=== PATIENT | female | born 1995 | race Caucasian/White ===

== ENCOUNTER 2016-11-26 17:04 | Emergency (ER) | payer OTHER ==
[~2016-11-26] VITALS: Ht 162.6 cm; Wt 70.0 kg
[~2016-11-26 17:04] MED LIST: AMOX500T PO; BENZ100 PO; CIPR500T4 PO; VENTAER INH; ZITH250T PO; ZOFR4TAB3 PO
[2016-11-26 17:06] VITALS: BP 137/85; PULSE 85; RESP 14; TEMP 97.7; O2SAT 96
--- NOTE | 2016-11-26 20:56 | PD ---
HPI Chief Complaint: ENT Complaint Time Seen by Provider: 20:45 Travel History International Travel<30 days: No Contact w/Intl Traveler<30days: No Traveled to known affect area: No History of Present Illness HPI 21-year-old female presents for evaluation of cough and sore throat. Symptoms started 2 weeks ago. The cough is primarily dry nonproductive but occasionally productive with sputum. She reports that her primary care physician prescribed her a cough suppressant but symptoms persisted which prompted evaluation. The cough is worse tonight. Denies recent travel, shortness of breath, fevers or chills. No sick contacts. No significant past medical history. No other complaints. 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 ) Respiratory: Yes (BRONCHITIS) Immunizations Current: No ?: Not : 0 Para: 0 Miscarriage: 0 : 0 Social History Alcohol Use: Yes (OCC) Tobacco Use: No Substance Use: No Allergies-Medications (Allergen,Severity, Reaction): Coded Allergies: Bactrim (Verified Allergy, Severe, Hives, 08/02/16) Reported Meds & Prescriptions Reported Meds & Active Scripts Active Magic Mouthwash Adult Liq (Multi-Ingredient Mouthwash/Gargle) 120 Ml Susp 5 Ml SWISH-SPIT ACHS Each 5 mL contains: Nystatin 200,000 units, Diphenhydramine 4.25 mg, Viscous Lidocaine 10 mg, Boggs syrup 0.8 mL Codeine/Guaifenesin 100-10 mg/5Ml (Guaifenesin-Codeine) 1 Tami Tami 5 Ml PO Q4HR PRN Review of Systems Except as stated in HPI: all other systems reviewed are Neg Physical Exam Narrative GENERAL: Well-developed well-nourished female in no acute distress SKIN: Warm and dry. HEAD: Atraumatic. Normocephalic. EYES: Pupils equal and round. No scleral icterus. No injection or drainage. ENT: No nasal bleeding or discharge. Mucous membranes pink and moist. There is mild oropharyngeal erythema without exudate. Uvula midline with no mass effect. NECK: Trachea midline. No JVD. No Lymphadenopathy. CARDIOVASCULAR: Regular rate and rhythm. No murmur appreciated. RESPIRATORY: No accessory muscle use. Clear to auscultation. Breath sounds equal bilaterally. No crackles no wheezing or rhonchi Data Data Last Documented VS Vital Signs Date Time Temp Pulse Resp B/P Pulse Ox O2 Delivery O2 Flow Rate FiO2 11/26/16 17:06 97.7 85 14 137/85 96 Room Air Orders Chest, Single Ap (11/26/16 ) Group A Rapid Strep Screen (11/26/16 20:53) Strep Culture (Group A) (11/26/16 21:05) MDM Medical Decision Making Medical Screen Exam Complete: Yes Emergency Medical Condition: Yes Medical Record Reviewed: Yes Differential Diagnosis Bronchitis, pneumonia, reactive airway disease, influenza, pertussis, pharyngitis, tonsillitis, peritonsillar abscess Narrative Course 21-year-old female with 2 weeks of sore throat and cough. Rapid strep screen and chest x-ray ordered and were unremarkable. Physical examination is reassuring. She appears to have a viral bronchitis and pharyngitis. She'll be discharged with medication for supportive care. Diagnosis Primary Impression: Bronchitis Additional Impression: Pharyngitis Qualified Code: J02.9 - Pharyngitis, unspecified etiology Additional Instructions: Medication as needed. Follow-up with primary care physician as needed. Stay well hydrated. Return for any emergent medical conditions. Med/Other Pt SpecificInfo: Prescription(s) given Scripts Eijvuues-Qoobcazhzxjupsz-Nyfgcfkiv Liq (Magic Mouthwash Adult Liq)120 Ml Susp5 Ml SWISH-SPIT ACHS #120 ML Ref 0 Each 5 mL contains: Nystatin 200,000 units, Diphenhydramine 4.25 mg, Viscous Lidocaine 10 mg, Boggs syrup 0.8 mL Prov:Padilla Rosas MD 11/26/16 Guaifenesin-Codeine (Codeine/Guaifenesin 100-10 mg/5Ml)1 Tami Sol5 Ml PO Q4HR PRN (COUGH) #240 ML Prov:Padilla Rosas MD 11/26/16 Disposition: 01 DISCHARGE HOME Condition: Stable Horacio Marmolejo Nov 26, 2016 20:56
--- NOTE | 2016-11-26 21:19 | RADRPT ---
EXAM DATE/TIME: 11/26/2016 21:07 [facility] COMPARISON: No previous studies available for comparison. INDICATIONS : Cough. MEDICAL HISTORY : None. SURGICAL HISTORY : None. ENCOUNTER: Initial ACUITY: 4 - 6 days PAIN SCORE: 0/10 LOCATION: chest FINDINGS: A single view of the chest demonstrates the lungs to be symmetrically aerated without evidence of mas s, infiltrate or effusion. The cardiomediastinal contours are unremarkable. Osseous structures are intact. CONCLUSION: No acute disease. Yves Ferreira MD on November 26, 2016 at 21:17 Board Certified Radiologist. This report was verified electronically.
[2016-11-26] MEDS ORDERED: MAGICADU2 SWISH-SPIT (21:48)
[2016-11-26] MEDS ORDERED: GUAI1SOL3 PO (21:48)
== END 2016-11-26 22:10 | disposition home or self-care (01) ==
LOC: NEPB 17:04
DX: J40 Bronchitis, not specified as acute or chronic (principal); J02.9 Acute pharyngitis, unspecified; B97.89 Other viral agents as the cause of diseases classified elsewhere; Z87.09 Personal history of other diseases of the respiratory system
CPT/HCPCS: 71010; 87081; 87880; 99283

== ENCOUNTER 2017-10-15 10:54 | Emergency (ER) | payer SELFPAY ==
[~2017-10-15 10:54] MED LIST changes: -AMOX500T PO; -BENZ100 PO; -CIPR500T4 PO; +GUAI1SOL3 PO; +MAGICADU2 SWISH-SPIT; -VENTAER INH; -ZITH250T PO; -ZOFR4TAB3 PO
[2017-10-15 10:56] VITALS: BP 121/80; PULSE 73; RESP 12; TEMP 98; O2SAT 98
[2017-10-15] MEDS ORDERED: AMOX500C PO (11:43)
[2017-10-15] MEDS ORDERED: MEDR4PAK PO (11:43)
--- NOTE | 2017-10-15 11:44 | PD ---
HPI Chief Complaint: Cold / Flu Symptoms Time Seen by Provider: 11:28 Travel History International Travel<30 days: No Contact w/Intl Traveler<30days: No Traveled to known affect area: No History of Present Illness HPI The patient is a 22-year-old female who presents emergency department for URI symptoms with bilateral ear pain. The patient is a 2 day history of significant congestion and facial pain over the maxillary sinus area. She also complains of copious nasal congestion and drainage as well as postnasal drip and a dry nonproductive cough. She also complains of bilateral ear pain with a history of previous ear infections. She denies any fever, chills, or sweats. The patient was advised by her mother come to the emergency department. She denies any fever, chills, or sweats. Symptoms are moderate without any alleviating or known exacerbating factors. 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 ) Respiratory: Yes (BRONCHITIS) Immunizations Current: No Tetanus Vaccination: > 5 Years Influenza Vaccination: No ?: Not LMP: 10/01/17 : 0 Para: 0 Miscarriage: 0 : 0 Past Surgical History Surgical History: No Previous Surgery Social History Alcohol Use: Yes (OCC) Tobacco Use: No Substance Use: No Allergies-Medications (Allergen,Severity, Reaction): Coded Allergies: sulfamethoxazole (Verified Allergy, Severe, Hives, 10/15/17) trimethoprim (Verified Allergy, Severe, Hives, 10/15/17) Reported Meds & Prescriptions Reported Meds & Active Scripts Active No Active Prescriptions or Reported Medications Review of Systems Except as stated in HPI: all other systems reviewed are Neg General / Constitutional: No: Fever, Chills HENT: Positive: Headaches, Sore Throat, Rhinorrhea, Congestion, Earache Respiratory: Positive: Cough, No: Shortness of Breath Gastrointestinal: No: Nausea, Vomiting, Diarrhea, Abdominal Pain Musculoskeletal: No: Myalgias, Arthralgias Physical Exam Narrative GENERAL: Awake, alert, pleasant 22-year-old female who appears her stated age and is in no acute respiratory distress. SKIN: Focused skin assessment warm/dry. HEAD: Atraumatic. Normocephalic. EYES: Pupils equal and round. No scleral icterus. No injection or drainage. ENT: Tenderness of the maxillary sinuses bilateral. Turbinates bilaterally are enlarged and erythematous. Oropharynx reveals cobblestoning without erythema or exudate. EACs are clear bilaterally. TMs are dull with air-fluid level but no erythema or bulging. NECK: Trachea midline. No JVD. CARDIOVASCULAR: Regular rate and rhythm. No murmur appreciated. RESPIRATORY: No accessory muscle use. Clear to auscultation. Breath sounds equal bilaterally. MUSCULOSKELETAL: No obvious deformities. No clubbing. No cyanosis. No edema. NEUROLOGICAL: Awake and alert. No obvious cranial nerve deficits. Motor grossly within normal limits. Normal speech. PSYCHIATRIC: Appropriate mood and affect; insight and judgment normal. Data Data Last Documented VS Vital Signs Date Time Temp Pulse Resp B/P (MAP) Pulse Ox O2 Delivery O2 Flow Rate FiO2 10/15/17 11:26 16 99 Room Air 10/15/17 10:56 98.0 73 121/80 (94) [facility] Medical Decision Making Medical Screen Exam Complete: Yes Emergency Medical Condition: Yes Medical Record Reviewed: Yes Differential Diagnosis Differential diagnosis includes sinusitis, URI, otitis media, otitis externa, eustachian tube dysfunction, viral syndrome, influenza. Narrative Course The patient's history and physical are consistent with a URI with secondary sinusitis and eustachian tube dysfunction. The patient will be placed on amoxicillin and a Medrol Dosepak. She is advised to alternate Tylenol and or Motrin as needed for pain and a follow-up with her primary physician. Return if symptoms worsen or progress. Diagnosis Primary Impression: Sinusitis Qualified Codes: J01.00 - Acute maxillary sinusitis, unspecified Additional Impression: Eustachian tube dysfunction Qualified Codes: H69.83 - Other specified disorders of eustachian tube, bilateral Patient Instructions: General Instructions Additional Instructions: Medications as directed. Follow-up with her primary physician. Return if symptoms worsen or progress. Med/Other Pt SpecificInfo: Prescription(s) given Scripts Amoxicillin (Amoxicillin) 500 Mg Cap 500 MG PO TID for Infection for 10 Days, CAP 0 Refills Prov: Alex Fabian MD 10/15/17 Methylprednisolone Dosepak (Medrol Dosepak) 4 Mg Dspk 4 MG PO DIRECTED, #1 DSPK 0 Refills Per Pharmacist direction Prov: Alex Fabian MD 10/15/17 Disposition: 01 DISCHARGE HOME Condition: Stable Alex Fabian MD Oct 15, 2017 11:43
[2017-10-15 11:48] VITALS: BP 109/78; TEMP 97.8
== END 2017-10-15 11:55 | disposition home or self-care (01) ==
LOC: NEPD 10:54
DX: J32.9 Chronic sinusitis, unspecified (principal); H69.83 Other specified disorders of Eustachian tube, bilateral; R51 Headache; Z88.2 Allergy status to sulfonamides; Z88.8 Allergy status to other drugs, medicaments and biological substances
CPT/HCPCS: 99284

== ENCOUNTER 2017-11-24 23:51 | Emergency (ER) | payer SELFPAY ==
[~2017-11-24] VITALS: Ht 162.6 cm; Wt 70.0 kg
[~2017-11-24 23:51] MED LIST changes: +AMOX500C PO; -GUAI1SOL3 PO; -MAGICADU2 SWISH-SPIT; +MEDR4PAK PO
[2017-11-24 23:54] VITALS: BP 120/72; PULSE 91; RESP 16; TEMP 97.8; O2SAT 98
[2017-11-25 00:43] LABS: AUTOMATED NEUTROPHIL # 6.2 TH/MM3 (1.8-7.7); BASOPHIL % 0.4 % (0.0-2.0); EOSINOPHIL # 0.1 TH/MM3 (0-0.4); EOSINOPHIL % 0.8 % (0.0-4.0); HEMATOCRIT 41.8 % (35.0-46.0); HEMOGLOBIN 14.9 GM/DL (11.6-15.3); LYMPH % 27.9 % (9.0-44.0); LYMPHOCYTE # 2.7 TH/MM3 (1.0-4.8); MEAN CELL VOLUME 85.9 FL (80.0-100.0); MEAN CORPUSCULAR HEMOGLOBIN 30.6 PG (27.0-34.0); MEAN CORPUSCULAR HGB CONC 35.6 % (32.0-36.0); MEAN PLATELET VOLUME 8.4 FL (7.0-11.0); MONO % 7.6 % (0.0-8.0); MONOCYTE # 0.7 TH/MM3 (0-0.9); NEUT % 63.3 % (16.0-70.0); PLATELET COUNT 196 TH/MM3 (150-450); RED BLOOD COUNT 4.86 MIL/MM3 (4.00-5.30); RED CELL DISTRIBUTION WIDTH 12.5 % (11.6-17.2); WHITE BLOOD COUNT 9.8 TH/MM3 (4.0-11.0)
[2017-11-25] MEDS ORDERED: SODIUM CHLOR 0.9% 1000 ML INJ 1,000 ML IV ONE (00:45)
[2017-11-25] MEDS ORDERED: ONDANSETRON HCL 4 MG/2 ML VIAL IV PUSH ONE (00:45)
[2017-11-25 00:46] LABS: BACTERIA, URINE RARE /hpf; BILIRUBIN, URINE NEG (NEG); BLOOD, URINE SMALL (NEG); GLUCOSE,URINE NEG (NEG); KETONE, URINE NEG (NEG); MUCUS URINE FEW /lpf (OCC); NITRITE,URINE NEG (NEG); PH, URINE 5.5 (5.0-8.5); SQUAMOUS EPITHELIAL CELL URINE 3 /hpf (0-5); URINE COLOR YELLOW (YELLW/STRAW); URINE LEUKOCYTE ESTERASE LARGE (NEG)
[2017-11-25 00:58] LABS: ALBUMIN 4.1 GM/DL (3.4-5.0); AST (GOT) 17 U/L (15-37); BICARBONATE 25.6 MEQ/L (21.0-32.0); BLOOD UREA NITROGEN 24 MG/DL (7-18); CALCIUM 8.7 MG/DL (8.5-10.1); CHLORIDE 107 MEQ/L (98-107); CREATININE 0.69 MG/DL (0.50-1.00); GLOMERULAR FILTRATION RATE 106 ML/MIN (>89); GLUCOSE,RANDOM 103 MG/DL (74-106); LIPASE 121 U/L (73-393); SODIUM (NA) 139 MEQ/L (136-145)
[2017-11-25 01:01] LABS: ALKALINE PHOSPHATASE 73 U/L (45-117); ALT (GPT) 30 U/L (10-53); TOTAL BILIRUBIN ADULT 0.2 MG/DL (0.2-1.0); TOTAL PROTEIN 7.7 GM/DL (6.4-8.2)
[2017-11-25] MEDS ORDERED: ZOFR4TAB PO (01:17)
--- NOTE | 2017-11-25 01:17 | PD ---
HPI . Abdominal pain Chief Complaint: Abdominal Pain Time Seen by Provider: 00:31 Travel History International Travel<30 days: No Contact w/Intl Traveler<30days: No Traveled to known affect area: No History of Present Illness HPI This patient presents with chief complaint of abdominal pain associated with nausea, vomiting and diarrhea. She and a friend ate dinner tonight and both started having GI symptoms about 2 hours later. They present here together. The fevers. No urinary tract symptoms. Presented modifying factor was supple. Symptoms are moderate. PFSH Past Medical History Medical History: Denies Significant Hx Diminished Hearing: Yes (BILATERAL HEARING AIDS) Respiratory: Yes (BRONCHITIS) Immunizations Current: No ?: Not LMP: 11/25/17 : 0 Para: 0 Miscarriage: 0 : 0 Past Surgical History Surgical History: No Previous Surgery Social History Alcohol Use: Yes (OCC) Tobacco Use: No Substance Use: No Allergies-Medications (Allergen,Severity, Reaction): Coded Allergies: sulfamethoxazole (Verified Allergy, Severe, Hives, 11/25/17) trimethoprim (Verified Allergy, Severe, Hives, 11/25/17) Reported Meds & Prescriptions Reported Meds & Active Scripts Active Amoxicillin 500 Mg Cap 500 Mg PO TID 10 Days Medrol Dosepak (Methylprednisolone) 4 Mg Dspk 4 Mg PO DIRECTED Per Pharmacist direction Review of Systems Except as stated in HPI: all other systems reviewed are Neg General / Constitutional: No: Fever, Chills Gastrointestinal: Positive: Nausea, Vomiting, Diarrhea, Abdominal Pain Genitourinary: No: Urgency, Frequency, Dysuria Physical Exam Narrative GENERAL: Patient was initially talking on her cell phone in no acute distress. SKIN: warm/dry. Normal color and turgor. HEAD: Normocephalic. Atraumatic. EYES: Pupils equal and round. No scleral icterus. No injection or drainage. ENT: No nasal bleeding or discharge. Mucous membranes pink and moist. NECK: Trachea midline. Full range of motion without pain.. CARDIOVASCULAR: Regular rate and rhythm. Heart sounds normal. RESPIRATORY: No accessory muscle use. Clear to auscultation. Breath sounds equal bilaterally. GASTROINTESTINAL: Abdomen soft. Nontender. Bowel sounds present. Nondistended. MUSCULOSKELETAL: No obvious deformities. NEUROLOGICAL: Awake and alert. No obvious cranial nerve deficits. Motor grossly within normal limits. Normal speech. PSYCHIATRIC: Appropriate mood and affect; insight and judgment normal. Data Data Last Documented VS Vital Signs Date Time Temp Pulse Resp B/P (MAP) Pulse Ox O2 Delivery O2 Flow Rate FiO2 11/25/17 00:42 Nasal Cannula 2.00 11/24/17 23:54 97.8 91 16 120/72 (88) 98 Orders Orders Complete Blood Count With Diff (11/25/17 00:19) Comprehensive Metabolic Panel (11/25/17 00:19) Urinalysis - C+S If Indicated (11/25/17 00:19) Ed Urine Pregnancytest Poc (11/25/17 00:19) Iv Access Insert/Monitor (11/25/17 00:19) Oxygen Administration (11/25/17 00:19) Oximetry (11/25/17 00:19) Lipase (11/25/17 00:19) Sodium Chlor 0.9% 1000 Ml Inj (Ns 1000 M (11/25/17 00:45) Ondansetron Inj (Zofran Inj) (11/25/17 00:45) Labs Laboratory Tests Test 11/25/17 00:20 White Blood Count 9.8 TH/MM3 Red Blood Count 4.86 MIL/MM3 Hemoglobin 14.9 GM/DL Hematocrit 41.8 % Mean Corpuscular Volume 85.9 FL Mean Corpuscular Hemoglobin 30.6 PG Mean Corpuscular Hemoglobin Concent 35.6 % Red Cell Distribution Width 12.5 % Platelet Count 196 TH/MM3 Mean Platelet Volume 8.4 FL Neutrophils (%) (Auto) 63.3 % Lymphocytes (%) (Auto) 27.9 % Monocytes (%) (Auto) 7.6 % Eosinophils (%) (Auto) 0.8 % Basophils (%) (Auto) 0.4 % Neutrophils # (Auto) 6.2 TH/MM3 Lymphocytes # (Auto) 2.7 TH/MM3 Monocytes # (Auto) 0.7 TH/MM3 Eosinophils # (Auto) 0.1 TH/MM3 Basophils # (Auto) 0.0 TH/MM3 CBC Comment DIFF FINAL Differential Comment Urine Color YELLOW Urine Turbidity CLEAR Urine pH 5.5 Urine Specific Luana 1.022 Urine Protein NEG mg/dL Urine Glucose (UA) NEG mg/dL Urine Ketones NEG mg/dL Urine Occult Blood SMALL Urine Nitrite NEG Urine Bilirubin NEG Urine Urobilinogen LESS THAN 2.0 MG/DL Urine Leukocyte Esterase LARGE Urine RBC 3 /hpf Urine WBC 4 /hpf Urine Squamous Epithelial Cells 3 /hpf Urine Bacteria RARE /hpf Urine Mucus FEW /lpf Microscopic Urinalysis Comment CULT NOT INDICATED Blood Urea Nitrogen 24 MG/DL Creatinine 0.69 MG/DL Random Glucose 103 MG/DL Total Protein 7.7 GM/DL Albumin 4.1 GM/DL Calcium Level 8.7 MG/DL Alkaline Phosphatase 73 U/L Aspartate Amino Transf (AST/SGOT) 17 U/L Alanine Aminotransferase (ALT/SGPT) 30 U/L Total Bilirubin 0.2 MG/DL Sodium Level 139 MEQ/L Potassium Level 3.8 MEQ/L Chloride Level 107 MEQ/L Carbon Dioxide Level 25.6 MEQ/L Anion Gap 6 MEQ/L Estimat Glomerular Filtration Rate 106 ML/MIN Lipase 121 U/L MDM Medical Decision Making Medical Screen Exam Complete: Yes Emergency Medical Condition: Yes Differential Diagnosis Differential diagnosis includes but is not limited to viral gastritis, food poisoning, pancreatitis, pneumonia, hepatitis, acute coronary syndrome, Narrative Course Patient presents along with a friend with the acute onset of nausea, vomiting and abdominal pain after eating tonight. She has been treated with IV fluids and IV Zofran. CBC & BMP Diagram 11/25/17 00:20 Total Protein 7.7, Albumin 4.1, Calcium Level 8.7, Alkaline Phosphatase 73, Aspartate Amino Transf (AST/SGOT) 17, Alanine Aminotransferase (ALT/SGPT) 30, Total Bilirubin 0.2 HCG is negative. Her urinalysis was contaminated but does not look infected. Diagnosis Primary Impression: Vomiting Qualified Codes: R11.2 - Nausea with vomiting, unspecified Patient Instructions: Acute Nausea and Vomiting (DC), General Instructions Med/Other Pt SpecificInfo: Prescription(s) given Scripts Ondansetron (Zofran) 4 Mg Tab 4 MG PO Q6HR Y for NAUSEA OR VOMITING, #6 TAB 0 Refills Prov: Nitza Partida MD 11/25/17 Disposition: 01 DISCHARGE HOME Condition: Stable Nitza Partida MD Nov 25, 2017 01:17
[2017-11-25 02:04] VITALS: BP 130/76
== END 2017-11-25 02:10 | disposition home or self-care (01) ==
LOC: NEPC 23:51
DX: R11.2 Nausea with vomiting, unspecified (principal); R10.9 Unspecified abdominal pain; R19.7 Diarrhea, unspecified; Z88.2 Allergy status to sulfonamides; Z88.8 Allergy status to other drugs, medicaments and biological substances
CPT/HCPCS: 80053; 81001; 83690; 84703; 85025; 96361; 96374; 99284; J2405; J7030

== ENCOUNTER 2018-02-11 09:43 | Emergency (ER) | payer SELFPAY ==
[~2018-02-11] VITALS: Ht 162.6 cm; Wt 75.0 kg
[~2018-02-11 09:43] MED LIST changes: +ZOFR4TAB PO
[2018-02-11 09:45] VITALS: BP 120/60; PULSE 81; RESP 18; TEMP 98.2; O2SAT 98
[2018-02-11] MEDS ORDERED: HUMIBIDDM PO (10:20)
[2018-02-11] MEDS ORDERED: ALEV120T PO (10:20)
--- NOTE | 2018-02-11 10:21 | PD ---
HPI Chief Complaint: Cold / Flu Symptoms Time Seen by Provider: 09:58 Travel History International Travel<30 days: No Contact w/Intl Traveler<30days: No Traveled to known affect area: No History of Present Illness HPI 22-year-old woman with cough cold symptoms, congestion, fever, coughing up yellow and red phlegm yesterday, clear today, with myalgias. Fever up to 102. No sick contacts. Missed work yesterday. History Past Medical History Narrative Medical Ovarian cyst LMP: JANUARY 2018 : 0 Para: 0 Social History Alcohol Use: Yes (OCC) Tobacco Use: No Allergies-Medications (Allergen,Severity, Reaction): Coded Allergies: sulfamethoxazole (Verified Allergy, Severe, Hives, 11/25/17) trimethoprim (Verified Allergy, Severe, Hives, 11/25/17) Reported Meds & Prescriptions Reported Meds & Active Scripts Active Zofran (Ondansetron HCl) 4 Mg Tab 4 Mg PO Q6HR PRN Amoxicillin 500 Mg Cap 500 Mg PO TID 10 Days Medrol Dosepak (Methylprednisolone) 4 Mg Dspk 4 Mg PO DIRECTED Per Pharmacist direction Review of Systems Except as stated in HPI: all other systems reviewed are Neg Physical Exam Narrative GENERAL: Well-appearing 20-year-old woman, no acute distress. SKIN: Focused skin assessment warm/dry. HEENT: Frequent cough. Some congestion. A little bit of erythema in the back of the throat. No tonsillar enlargement or purulent drainage. No palatal petechiae. TMs are normal. No meningismus HEAD: Atraumatic. Normocephalic. CARDIOVASCULAR: Regular rate and rhythm. No murmur appreciated. RESPIRATORY: No accessory muscle use. Clear to auscultation. Breath sounds equal bilaterally. GASTROINTESTINAL: Abdomen soft, non-tender, nondistended. Hepatic and splenic margins not palpable. MUSCULOSKELETAL: No obvious deformities. No edema. NEUROLOGICAL: Awake and alert. No obvious cranial nerve deficits. Motor grossly within normal limits. Normal speech. PSYCHIATRIC: Appropriate mood and affect; insight and judgment normal. Data Data Last Documented VS Vital Signs Date Time Temp Pulse Resp B/P (MAP) Pulse Ox O2 Delivery O2 Flow Rate FiO2 02/11/18 09:45 98.2 81 18 120/60 (80) 98 MDM Medical Decision Making Medical Screen Exam Complete: Yes Emergency Medical Condition: Yes Differential Diagnosis Flu, URI, bronchitis, otitis, other Narrative Course Medical decision making para 20-year-old woman presents emerged R URI symptoms. Looks well. Recommend supportive treatment. Diagnosis Primary Impression: Influenza-like illness Patient Instructions: General Instructions Departure Forms: Tests/Procedures, Work Release Enter return to work date: Feb 11, 2018 Special Instructions: May return to work after no fever for 24 hours. Additional Instructions: You can return to work after you have had no fever for 24 hours. Drink plenty of fluids to stay well-hydrated. Follow-up with your primary doctor if you are not completely well in 7-10 days. Return to the emergency department for any worsening chest pain, trouble breathing, or any other new or worsening symptoms. Med/Other Pt SpecificInfo: Prescription(s) given Scripts Dextromethorphan-Guaifenesin (Mucinex DM) 30-600 Mg Tab 2 TAB PO BID Y for CHEST CONGESTION AND/OR COUGH, #28 TAB 0 Refills Prov: Padilla Rosas MD 02/11/18 Pseudoephedrine-Naproxen (Aleve-D Sinus & Headache) 120-220 Mg Tab 1 TAB PO BID, #14 TAB Prov: Padilla Rosas MD 02/11/18 Disposition: 01 DISCHARGE HOME Condition: Stable Padilla Rosas MD Feb 11, 2018 10:21
== END 2018-02-11 10:52 | disposition home or self-care (01) ==
LOC: NEPD 09:43
DX: J11.1 Influenza due to unidentified influenza virus with other respiratory manifestations (principal)
CPT/HCPCS: 99283

== ENCOUNTER 2018-03-04 17:19 | Emergency (ER) | payer SELFPAY ==
[~2018-03-04] VITALS: Ht 162.6 cm; Wt 68.0 kg
[~2018-03-04 17:19] MED LIST changes: +ALEV120T PO; +HUMIBIDDM PO
[2018-03-04 17:37] VITALS: BP 112/67; PULSE 84; RESP 15; TEMP 98.9; O2SAT 97
--- NOTE | 2018-03-04 18:01 | PD ---
HPI Chief Complaint: Cold / Flu Symptoms Time Seen by Provider: 17:48 Travel History International Travel<30 days: No Contact w/Intl Traveler<30days: No Traveled to known affect area: No History of Present Illness HPI This is a 22-year-old female who presents to the emergency department with 2 weeks of sore throat, constant, moderate severity, worse with swallowing associated with a productive cough with white sputum and fever up to 105 at home. She says that she has been sweating through her clothing and she has been having chills. The symptoms have been persistent. She was seen in the emergency department 2 weeks ago and at that time discharged with cough suppressant and decongestant. She says it is not helping and she is still sick. She also has been trying an inhaler that she has at home but that is not helping the cough and she completed a course of azithromycin which she had left over from another illness. She does not smoke. PFSH Past Medical History Diminished Hearing: Yes (BILATERAL HEARING AIDS) Respiratory: Yes (BRONCHITIS) Immunizations Current: No ?: Unknown : 0 Para: 0 Miscarriage: 0 : 0 Social History Alcohol Use: Yes (OCC) Tobacco Use: No Substance Use: No Allergies-Medications (Allergen,Severity, Reaction): Coded Allergies: sulfamethoxazole (Verified Allergy, Severe, Hives, 11/25/17) trimethoprim (Verified Allergy, Severe, Hives, 11/25/17) Reported Meds & Prescriptions Reported Meds & Active Scripts Active Mucinex DM (Dextromethorphan-Guaifenesin) 30-600 Mg Tab 2 Tab PO BID PRN Aleve-D Sinus & Headache (Pseudoephedrine-Naproxen) 120-220 Mg Tab 1 Tab PO BID Zofran (Ondansetron HCl) 4 Mg Tab 4 Mg PO Q6HR PRN Amoxicillin 500 Mg Cap 500 Mg PO TID 10 Days Medrol Dosepak (Methylprednisolone) 4 Mg Dspk 4 Mg PO DIRECTED Per Pharmacist direction Review of Systems Except as stated in HPI: all other systems reviewed are Neg Physical Exam Narrative GENERAL:Well appearing, no acute distress SKIN: Focused skin assessment warm and dry. HEAD: Atraumatic. Normocephalic. EYES: Pupils equal and round. No injection or drainage. ENT: Posterior pharyngeal erythema with no exudates. Some anterior cervical tender lymphadenopathy. NECK: Trachea midline. CARDIOVASCULAR: Regular rate and rhythm. No murmur appreciated. RESPIRATORY: Clear to auscultation. Breath sounds equal bilaterally. GASTROINTESTINAL: Abdomen soft, non-tender, nondistended. MUSCULOSKELETAL: No obvious deformities. NEUROLOGICAL: Awake and alert. No obvious cranial nerve deficits. Moving all extremities. PSYCHIATRIC: Appropriate mood and affect; insight and judgment normal. Data Data Last Documented VS Vital Signs Date Time Temp Pulse Resp B/P (MAP) Pulse Ox O2 Delivery O2 Flow Rate FiO2 03/04/18 17:50 18 99 Room Air 03/04/18 17:37 98.9 84 112/67 (82) Orders Orders Group A Rapid Strep Screen (03/04/18 17:57) Monoscreen (03/04/18 17:57) Strep Culture (Group A) (03/04/18 18:00) Labs Laboratory Tests Test 03/04/18 18:00 Monoscreen NEG MDM Medical Decision Making Medical Screen Exam Complete: Yes Emergency Medical Condition: Yes Interpretation(s) [place] screen is negative Strep is negative Differential Diagnosis Strep pharyngitis, mononucleosis, influenza, viral syndrome Narrative Course This is a 22-year-old female who presents to the emergency department with sore throat and cough as well as fever at home. She is well-appearing on exam with normal vital signs. Rapid strep and mono were negative. I do not think she requires any additional diagnostics. This appears to be a persistent viral syndrome. Patient will be discharged with symptomatic medications. Diagnosis Primary Impression: Viral syndrome Patient Instructions: General Instructions Additional Instructions: If you develop severe chest pain, shortness of breath, sweating, lightheadedness , dizziness or difficulty breathing return to the emergency department immediately. Followup with your primary care physician in 2-3 days if your symptoms are not resolved. Med/Other Pt SpecificInfo: No Change to Meds Scripts Benzonatate (Tessalon Perles) 100 Mg Cap 100 MG PO TID Y for COUGH, #20 CAP 0 Refills Prov: Ekaterina Salinas MD 03/04/18 Promethazine-Codeine Liq (Promethazine-Codeine Liq) 6.25-10 Mg/5 Ml Syrp 5-10 ML PO Q6H Y for COUGH AND/OR COLD SYMPTOMS, #100 ML 0 Refills Prov: Ekaterina Salinas MD 03/04/18 Disposition: 01 DISCHARGE HOME Condition: Stable Ekaterina Salinas MD March 04, 2018 18:01
[2018-03-04 18:35] LABS: MONOSCREEN NEG (NEG)
[2018-03-04] MEDS ORDERED: PROM6.256 PO (18:52)
[2018-03-04] MEDS ORDERED: BENZ100 PO (18:52)
== END 2018-03-04 19:44 | disposition home or self-care (01) ==
LOC: NEPD 17:19
DX: B34.9 Viral infection, unspecified (principal); Z88.2 Allergy status to sulfonamides; Z88.8 Allergy status to other drugs, medicaments and biological substances
CPT/HCPCS: 86308; 87081; 87880; 99283

== ENCOUNTER 2018-03-17 06:51 | Emergency (ER) | END 2018-03-17 09:59 | disposition home or self-care (01) | DX: G44.319 Acute post-traumatic headache, not intractable (principal) | CPT/HCPCS: 70450; 72125; 84703; 96374; 96375; 99284; J0780; J1200; J1885; J7030 ==